=== PATIENT | female | born 2000 | race Caucasian/White ===

== ENCOUNTER 2022-08-27 16:34 | Emergency (ER) | payer OTHER ==
[2022-08-27 17:00] LABS: BASOPHILS % (AUTO) 0.3 %; HGB - HEMOGLOBIN 12.9 g/dL (12.0-16.0); LYMPHOCYTES # (AUTO) 0.9 10^3/uL (1.5-3.5); LYMPHOCYTES % (AUTO) 9.7 %; MEAN CORPUSCULAR HEMOGLOBIN 28.1 pg (27.0-31.0); MEAN CORPUSCULAR HGB CONC 33.9 g/dL (32.0-36.0); MEAN CORPUSCULAR VOLUME 82.8 fL (81.0-99.0); MEAN PLATELET VOLUME 9.6 fL (7.9-10.8); MONOCYTES # (AUTO) 0.6 10^3/uL (0.0-1.0); MONOCYTES % (AUTO) 6.8 %; NEUTROPHILS # (AUTO) 7.7 10^3/uL (1.5-6.6); NEUTROPHILS % (AUTO) 82.9 %; PLT - PLATELET COUNT 257 10^3/uL (130-450); RED BLOOD COUNT 4.59 10^6/uL (4.20-5.40); RED CELL DISTRIBUTION WIDTH 12.7 % (12.0-15.0); WHITE BLOOD COUNT 9.3 x10^3/uL (4.8-10.8)
[2022-08-27 17:13] LABS: ALBUMIN 4.7 g/dL (3.2-5.5); ALBUMIN/GLOBULIN RATIO 1.3 (1.0-2.2); BILIRUBIN,TOTAL 1.2 mg/dL (0.2-1.0); CALCIUM 9.3 mg/dL (8.5-10.3); CREATININE 0.9 mg/dL (0.4-1.0); POTASSIUM 3.5 mmol/L (3.5-5.0); TOTAL PROTEIN 8.3 g/dL (6.7-8.2)
[2022-08-27 19:00] LABS: BILIRUBIN,URINE NEGATIVE (NEGATIVE); GLUCOSE, URINE (UA) NEGATIVE (NEGATIVE); KETONES,URINE (UA) 40 mg/dL (NEGATIVE); LEUKOCYTE ESTERASE, URINE NEGATIVE (NEGATIVE); NITRITE,URINE POSITIVE (NEGATIVE); OCCULT BLOOD,URINE TRACE-INTA (NEGATIVE); PROTEIN,URINE NEGATIVE (NEGATIVE); UROBILINOGEN,URINE 0.2 (NORMAL) E.U./dL (NORMAL)
[2022-08-27 19:02] LABS: CLARITY,URINE CLOUDY (CLEAR)
[2022-08-27 19:03] LABS: HCG UR QUAL NEGATIVE
[2022-08-27 19:09] LABS: BACTERIA,URINE Many /HPF (None Seen); RBC,URINE 0-5 /HPF (0-5); SQUAMOUS EPITHELIAL CELL,UR MOD Squamous (<= Few)
[2022-08-27 19:10] LABS: MUCUS,URINE Few Strands
[2022-08-27] MEDS ORDERED: KETOROLAC 30 MG/ML VIAL IVP STA (19:24)
--- NOTE | 2022-08-27 19:34 | ED Physician Documentation ---
History of Present Illness - Stated complaint Stated Complaint: BACK PX - Chief complaint Chief Complaint: Back Pain - Additonal information Additional information: 22-year-old female presents emergency department for evaluation of acute onset left flank pain. 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 She states that 2 weeks ago she had some pain in her back after flying for a longer period of time than normal. She did not think much of it until yesterday when she began to have a sudden sharp pain in her left flank region that radiates to the left lower quadrant. No fevers. No nausea or vomiting. Denies any dysuria urgency or frequency. She has never had this pain before. Denies drugs or alcohol. Does not take any prescribed medications. Review of Systems Constitutional: reports: Reviewed and negative Throat: reports: Reviewed and negative Cardiac: reports: Reviewed and negative Respiratory: reports: Reviewed and negative GI: reports: Abdominal Pain. denies: Nausea, Vomiting, Constipation, Diarrhea : reports: Reviewed and negative PD PAST MEDICAL HISTORY - Present Medications Home Medications: Ambulatory Orders Medication Instructions Recorded Confirmed Cefpodoxime Proxetil [Vantin] 100 mg PO Q12H #14 tablet 08/27/22 - Allergies Allergies/Adverse Reactions: Allergies Allergy/AdvReac Type Severity Reaction Status Date / Time No Known Drug Allergies Allergy Verified 08/27/22 16:42 PD ED PE NORMAL - General General: Alert and oriented X 3, No acute distress - HEENT HEENT: PERRL - Cardiac Cardiac: RRR, No murmur - Respiratory Respiratory: No respiratory distress, Clear bilaterally - Abdomen Abdomen: Normal bowel sounds, Soft. No: Non tender (Mild tenderness elicited with palpation of the left flank though it is worse on movement. 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 Eye Opening: Spontaneous Motor: Obeys Commands Verbal: Oriented GCS Score: 15 Results - Vitals Vitals: Vital Signs - 24 hr 08/27/22 08/27/22 08/27/22 16:36 18:41 20:02 Temperature 36.4 C L Heart Rate 125 H 109 H 106 H Respiratory 16 20 21 Rate Blood Pressure 114/87 H 124/77 120/63 O2 Saturation 99 100 100 Oxygen O2 Source Room air - Labs Labs: Laboratory Tests 08/27/22 08/27/22 08/27/22 16:55 16:55 17:00 WBC 9.3 RBC 4.59 Hgb 12.9 Hct 38.0 MCV 82.8 MCH 28.1 MCHC 33.9 RDW 12.7 Plt Count 257 MPV 9.6 Neut # (Auto) 7.7 H Lymph # (Auto) 0.9 L [place] # (Auto) 0.6 Eos # (Auto) 0.0 Baso # (Auto) 0.0 Absolute Nucleated RBC 0.00 Nucleated RBC % 0.0 Sodium 134 L Potassium 3.5 Chloride 100 L Carbon Dioxide 24 Anion Gap 10.0 BUN 9 Creatinine 0.9 Estimated GFR (MDRD) 79 L Glucose 102 H Calcium 9.3 Total Bilirubin 1.2 H AST 17 ALT 15 Alkaline Phosphatase 58 Total Protein 8.3 H Albumin 4.7 Globulin 3.6 Albumin/Globulin Ratio 1.3 Lipase 27 Urine Color YELLOW Urine Clarity CLOUDY Urine pH 7.0 Ur Specific [place] 1.015 Urine Protein NEGATIVE Urine Glucose (UA) NEGATIVE Urine Ketones 40 H Urine Occult Blood TRACE-INTA Urine Nitrite POSITIVE H Urine Bilirubin NEGATIVE Urine Urobilinogen 0.2 (NORMAL) Ur Leukocyte Esterase NEGATIVE Urine RBC 0-5 Urine WBC 11-25 H Ur Squamous Epith Cells MOD Squamous H Urine Bacteria Many H Urine Mucus Few Strands Ur Microscopic Review INDICATED Urine Culture Comments NOT INDICATED Urine HCG, Qual NEGATIVE - Rads (name of study) CT abd Radiology: Final report received (No evidence of hydronephrosis or calcified renal stones. Minimal fat stranding adjacent to the left renal pelvis and proximal left ureter is nonspecific and may reflect a urinary tract infection. No evidence of diverticulitis) PD Medical Decision Making - ED course Complexity details: reviewed results, re-evaluated patient, considered differential ED course: 22-year-old female presents emergency department for evaluation of acute left flank pain described as sharp and stabbing. She is had no fevers or vomiting and she strongly denies urinary symptoms however her urinalysis is most consistent with an acute infection as there is moderate WBCs it is nitrite positive and lots of bacteria. Her CBC was without leukocytosis. Electrolytes without acute worrisome findings. Here in the emergency department she had no worrisome vital sign abnormalities or fevers. We did proceed to do a CT of the abdomen looking for renal stones given that the patient declined urinary symptoms. The CT however shows stranding around the left kidney and ureter suggesting acute pyelonephritis. This finding was discussed with the patient. She was administered a gram of ceftriaxone here in the emergency department and will be discharged with a week of Vantin to take orally. Clinically she would not meet hospital inpatient criteria for hospitalization. We did discuss the usual routine emergent return precautions Departure - Departure Disposition: 01 Home, Self Care Clinical Impression: Pyelonephritis Condition: Stable Record reviewed to determine appropriate education?: Yes Instructions: Pyelonephritis Dc Prescriptions: Cefpodoxime Proxetil [Vantin] 100 mg PO Q12H #14 tablet Comments: Maxine you are seen today in the emergency department because you have had some acute pain in your left flank. Here in the emergency department your urine is grossly suggestive of a urinary tract infection. The CT scan that we did of your abdomen does show some inflammation and stranding around your kidney and left ureter. This most likely means that you have a mild left kidney infection. The CBC and electrolytes that we did were otherwise without acute findings in the emergency department. In order to manage this infection we have given you an injection of an antibiotic called ceftriaxone and [place] will [place] this twice daily for the next week. 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 Return immediately to the ER if you find that your symptoms are worsening despite the antibiotics. Return for fevers, severe abdominal pain uncontrolled vomiting.
--- NOTE | 2022-08-27 20:11 | CT Report ---
PROCEDURE: ABDOMEN/PELVIS WO INDICATIONS: left flank pain TECHNIQUE: Noncontrast 5 mm thick sections acquired from the diaphragms to the symphysis. 5 mm coronal and sagi ttal reformats were then performed. For radiation dose reduction, the following was used: automated exposure control, adjustment of mA and/or kV according to patient size. COMPARISON: None. FINDINGS: Image quality: Excellent. Lung bases:There is a 0.4 cm pulmonary nodule in the right lower lobe on series 4 image 9. Heart: Heart is normal in size. ABDOMEN: Liver:Noncontrast evaluation of the liver demonstrates no discrete mass. Gallbladder: Within normal limits without calcified gallstones. Biliary ducts: No biliary ductal dilatation. Pancreas: Unremarkable. Spleen:The spleen is borderline enlarged, measuring up to 13.5 cm. Adrenal Glands: No adrenal nodules. Kidneys and Ureters: No hydronephrosis or nephrolithiasis. No hydroureter. There is minimal fat stra nding adjacent to the left renal pelvis and proximal left ureter. Stomach and Bowel: Stomach, small bowel loops, and colon are normal in caliber and wall thickness. Peritoneum: No abnormal intraperitoneal fluid. No free air. Ventral Wall: No hernia. Abdominal Nodes: No retroperitoneal or mesenteric adenopathy by size criteria. Vessels: Aorta and inferior vena cava are normal in size. PELVIS: Pelvic Organs: Unremarkable. Bladder: Unremarkable. Pelvic Nodes: No enlarged lymph nodes. Miscellaneous: No inguinal hernias. Bones: Visualized osseous structures demonstrate no suspicious lesions. IMPRESSION: 1. No evidence of hydronephrosis or calcified renal stones. 2. Minimal fat stranding adjacent to the left renal pelvis and proximal left ureter is nonspecific an d may reflect a urinary tract infection. 3. No evidence of diverticulitis. Reviewed by: Butch Tesfaye MD on 08/27/2022 8:09 PM PST Approved by: Butch Tesfaye MD on 08/27/2022 8:09 PM PST Station ID: [id number]
[2022-08-27] MEDS ORDERED: cefTRIAXone 1 GM VIAL IVP STA (20:30)
[2022-08-27 21:16] VITALS: BP 112/67
--- NOTE | 2022-08-28 09:55 | ED Physician Documentation ---
ED Addendum - Addendum Addendum: 08/28/22 09:55 None the patient called and states she tried to get her prescription at the [facility] pharmacy but they do not stock Vantin and the patient requests that we retransmitted to [facility] instead. I did that.
== END 2022-08-27 21:15 | disposition home or self-care (01) ==
LOC: ED 16:34
DX: N12 Tubulo-interstitial nephritis, not specified as acute or chronic (principal)
CPT/HCPCS: 36415; 80053; 81001; 81003; 81025; 83690; 85025; 87086; 96374; 96375; 99283

== ENCOUNTER 2023-11-25 15:55 | Outpatient (CLI) | payer OTHER ==
--- NOTE | 2023-11-26 13:22 | MRI Report ---
PROCEDURE: Brain WO INDICATIONS: MIGRAINE TECHNIQUE: Noncontrast axial T1 spin echo, axial T2 fast spin echo, sagittal and axial FLAIR, coronal T2 fast sp in echo, axial gradient echo, axial diffusion and ADC through the brain. COMPARISON: None. FINDINGS: Image quality: Diagnostic, with note made of motion artifact. CSF Spaces: Basal cisterns are patent. No extra-axial fluid collections. Ventricles are normal in size and shape. Brain: No intracranial masses or hemorrhage. Temple/white matter interface is normal. Brainstem appe ars normal. Diffusion-weighted images demonstrate no acute ischemic insult. No chronic ischemic ins ults. Normal intravascular flow voids are present. Skull and face: Calvarium has normal marrow signal. Orbits appear normal. Sinuses: Sinuses and mastoids are clear. IMPRESSION: Unremarkable brain MRI, without a cause of migraine headaches identified. No abnormal T2-weighted hyperintensity can be seen within the white matter. To the limits of this noncontrast study, no findings of masses or mass effect can be seen. Negative for hydrocephalus or brain edema. Reviewed by: Lucius Mendoza MD on 11/26/2023 12:20 PM THUAN Approved by: Lucius Mendoza MD on 11/26/2023 12:20 PM THUAN Station ID: [id number]
== END 2023-11-25 15:56 | disposition home or self-care (01) ==
LOC: DI 15:55
PROVIDERS: ATTEND Student in an Organized Health Care Education/Training Program
DX: G43.909 Migraine, unspecified, not intractable, without status migrainosus (principal)